=== PATIENT | male | born 1945 | race Caucasian/White ===

== ENCOUNTER → 2016-05-16 | Outpatient (CLI) | payer MEDICARE ==
[~2016-05-16] MED LIST: DICLOFENAC PO; NO MEDICATIONS; NORCO1 TAB 10/3 PO
[2016-05-16 11:51] LABS: HEMOGLOBIN 14.3 gm/dL (13.0-16.0); MEAN CELL VOLUME 98.1 FL (83-96); MEAN CORPUSCULAR HEMOGLOBIN 31.9 PG (28-34); MEAN CORPUSCULAR HGB CONC 32.5 g/dL (30-36); MEAN PLATELET VOLUME 8.4 FL (6.5-11.5); RED BLOOD COUNT 4.48 X10e (3.90-5.60); WHITE BLOOD COUNT 6.8 X10e3 (4.0-10.5)
[2016-05-16 12:27] LABS: ALBUMIN SERUM 4.1 g/dL (3.5-5.0); ALKALINE PHOSPHATASE 50 U/L (32-92); ALT (SGPT) 15 U/L (10-40); AST (SGOT) 18 U/L (10-42); BILIRUBIN,TOTAL 0.4 mg/dL (0.2-2.0); BLOOD UREA NITROGEN 15 mg/dL (9-23); BUN/CREATININE RATIO 18.75; CALCIUM SERUM 9.2 mg/dL (8.4-10.2); CARBON DIOXIDE 30 mmol/L (22-31); CHLORIDE 103 mmol/L (100-111); CREATININE SERUM 0.8 mg/dL (0.6-1.4); GLOM FILT RATE Estimated ABOVE60 mL/min (>60); GLUCOSE FASTING 88 mg/dL (70-110); POTASSIUM 4.4 mmol/L (3.5-5.1); PROTEIN TOTAL SERUM 6.8 g/dL (6.0-8.3); SODIUM 138 mmol/L (135-145)
== END | disposition home or self-care (01) ==
LOC: CLAB 11:00
PROVIDERS: Nurse Practitioner Family
DX: B19.20 Unspecified viral hepatitis C without hepatic coma (principal)
CPT/HCPCS: 36415; 80053; 85027; 87522

== ENCOUNTER → 2016-06-06 | Outpatient (CLI) | payer MEDICARE ==
--- NOTE | ~2016-06-06 | CT57 ---
[facility] A Service of [facility] RADIOLOGY TEXT RESULTS PATIENT: DAVID BRANDT LOCATION: [facility] : 45 UNIT #: [id number] AGE: [address]: Eliana Carcamo SEX: M ORDER DR: [id number] [facility] [address] [place], [place] [address] [id number] O MR#: [id number] Acc #: [id number] NAME: DAVID BRANDT : 1945 SEX: M STUDY DATE/TIME: 06/06/2016 11:50 UNIT: [facility] ROOM: STUDY DESCRIPTION: CT Chest Wo Cont Attending Physician: Eliana Carcamo A.P.R.N. Referring Physician: Eliana Carcamo A.P.R.N. Ordering Physician: Eliana Carcamo A.P.R.N. [facility] REPORT This report is preliminary unless electronic signature is present EXAM Chest CT without contrast HISTORY Indeterminate lung nodule. Previous smoker. Evaluate for growth of the nodule over time. TECHNIQUE Axial imaging was obtained through the chest without contrast and evaluated at lung and mediastinal windows. This CT exam was performed with one or more of the following radiation dose reduction techniques: automatic exposure control, adjustment of mA and/or kV according to patient size, and iterative reconstruction. FINDINGS The right upper lobe nodule is unchanged in size or shape from the previous scan. Emphysematous changes are again noted. There is left upper lobe bronchiectasis seen and it is also unchanged and bronchial wall thickening is noted bilaterally consistent with chronic bronchitis. No new or enlarging masses are seen and no suspicious infiltrates are noted. There is no evidence of adenopathy. There is fusiform dilatation of the ascending aorta to a maximum diameter 4.2 cm compared with 4.05 cm on the previous examination. This should be followed routinely. IMPRESSION 1. Slight interval increase in diameter of the ascending aorta from 4.05 cm to 4.2 cm. 2. Emphysema with chronic bronchitis. 3. Stable left upper lobe bronchiectasis. 4. Stable 5.0 mm right upper lobe nodule. Recommend followup scanning in 1 year. [facility]. [facility] A Service of [facility] & [facility] RADIOLOGY TEXT RESULTS PATIENT: DAVID BRANDT LOCATION: [facility] : 45 UNIT #: [id number] AGE: [address]: Eliana Carcamo SEX: M ORDER DR: Dictated by... Vinh Rodriguez M.D. THIS IS AN ELECTRONICALLY VERIFIED REPORT Vinh Rodriguez M.D. at 06/07/2016 1:05 PM Niko TD: 06/07/2016 09:01 JOB #: [id number] MEDICAL IMAGING REPORT Page 1 of 1 COPY
== END | disposition home or self-care (01) ==
LOC: CCAT 11:26
DX: J43.9 Emphysema, unspecified (principal); R93.8 Abnormal findings on diagnostic imaging of other specified body structures; J42 Unspecified chronic bronchitis; R91.1 Solitary pulmonary nodule
CPT/HCPCS: 71250